=== PATIENT | female | born 1980 | race Hispanic/Latino ===

== ENCOUNTER 2018-01-06 15:27 | Emergency (ER) | payer OTHER ==
[~2018-01-06] VITALS: Ht 170.2 cm; Wt 87.1 kg
--- OUTSIDE RECORDS SUMMARY | 2018-01-06 15:29 | XMS REPORT | Clinical Summary ---
Author Author [facility] Address Unknown Phone Unavailable Care Team Providers Care Yard Caller Name Role Phone Asked, No Pcp PCP Unavailable Allergies No Known Allergies Current Medications Prescription Sig. Disp. Refills Start End Date Status Date docusate sodium (COLACE) Take 1 capsule (100 mg 60 capsule 0 12/25/19 01/24/20 Active 100 MG capsule total) by mouth 2 (two) 18 18 times a day for 30 days. 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 Encounters Date Type Specialty Care Team Description 12/23/2017 [facility] General Internal Medicine Lisa Oswald MD - Encounter 12/24/2017 12/23/2017 Procedure Pass General Surgery 12/23/2017 Surgery General Surgery Lisa Oswald MD ABDOMINOPLASTY WITH 12/13/2017 Anesthesia General Surgery Pavithra Hagen FNP-C Event after 01/05/2017 Family History Medical History Relation Name Comments Diabetes Mother Hypertension Mother Relation Name Status Comments Mother Alive Social History Tobacco Use Types Packs/Day Years Used Date Never Smoker Smokeless Tobacco: Never Used Alcohol Use Drinks/Week oz/Week Comments Yes occasional Sex Assigned at Date Recorded Not on file Last Filed Vital Signs Vital Sign Reading Time Taken Blood Pressure 118/63 12/24/2017 7:23 AM CDT Pulse 74 12/24/2017 7:23 AM CDT Temperature 36.2 C (97.2 F) 12/24/2017 7:23 AM CDT Respiratory Rate 15 12/24/2017 7:23 AM CDT Oxygen Saturation 100% 12/24/2017 7:23 AM CDT Inhaled Oxygen - - Concentration Weight 88.5 kg (195 lb) 12/23/2017 1:32 PM CDT Height 170.2 cm (5' 7") 12/23/2017 1:32 PM CDT Body Mass Index 30.54 12/23/2017 1:32 PM CDT Plan of Treatment Not on file Procedures Procedure Name Priority Date/Time Associated Diagnosis Comments NV AN ELECTIVE Routine 12/23/2017 ENDOTRACHEAL AIRWAY 8:29 AM CDT Procedure Note - Karen Kurtz MD - 12/23/2017 8:29 AM CDT Airway Date/Time: 12/23/2017 8:22 AM Performed by: LISA VINES Authorized by: KAREN KURTZ Location: OR Urgency: Elective Difficult Airway: No Anesthesio logist: KAREN KURTZ Resident/C RNA/AA: LISA VINES Performed by: resident/C RNA/AA Preoxygena roberto with 100% O2: Yes Mask Ventilatio n: Easy mask Final Airway Type: Endotrache al airway Final Endotrache al Airway: ETT Cuffed: Yes Technique Used: Direct laryngosco py Devices/Me thods Used in Placement: Intubatin g stylet Insertion Site: Oral Blade Type: Felipe Laryngosco pe Blade/Vide olaryngosc ope Blade Size: 2 ETT Size (mm): 7.0 Cuff at minimum occlusion pressure: Yes Measured from: Lips ETT to Lips (cm): 21 Placement Verified by: CO2 detection and direct visualizat ion Laryngosco pic view: Grade I - full view of glottis Rapid Sequence Induction (RSI): No Modified RSI: No Number of Attempts at Approach: 1 Atraumati c intubation with soft tissue and dentition unchanged PARTIAL THROMBOPLASTIN STAT 12/23/2017 Results for this TIME (PTT) 7:34 AM CDT procedure are in the results section. PROTHROMBIN TIME WITH INR STAT 12/23/2017 Results for this 7:34 AM CDT procedure are in the results section. POC , URINE Routine 12/23/2017 Results for this 6:51 AM CDT procedure are in the results section. ESTIMATED GFR STAT 12/23/2017 Results for this 6:22 AM CDT procedure are in the results section. HC COMPLETE BLD COUNT STAT 12/23/2017 Results for this W/AUTO DIFF 6:22 AM CDT procedure are in the results section. COMPREHENSIVE METABOLIC STAT 12/23/2017 Results for this PANEL 6:22 AM CDT procedure are in the results section. HCG QUALITATIVE, URINE Routine 12/23/2017 Results for this SCREEN 6:20 AM CDT procedure are in the results section. after 01/05/2017 Results * Partial thromboplastin time, activated (12/23/2017 7:34 AM) PTT 29.8 23.0 - 36.[address] [facility] OF Comment: PATHOLOGY AND PTT therapeutic range for [facility] unfractionated heparin is 61.0-112.0 seconds which corresponds to Anti-Xa 0.3-0.7 U/ml. Specimen Blood Performing Organization Address [facility] Phone Number [facility] [place] [id number]. [place] [phone] PATHOLOGY AND [facility] * Prothrombin time with INR (12/23/2017 7:34 AM) Prothrombin time 13.1 12.0 - 15.[address] [facility] OF PATHOLOGY AND [facility] INR [address] [facility] OF Comment: PATHOLOGY AND The International Normalized [facility] Ratio (INR) is a therapeutic monitoring tool for patients who are stable on oral anticoagulant therapy. An INR of 2.0-3.0 is suggested for deep vein thrombosis/pulmonary embolism. Specimen Blood Performing Organization Address [facility] Phone [place] [address] [employer] [place] [phone] PATHOLOGY AND [employer] * POC , urine (12/23/2017 6:51 AM) test urine, POC Negative QC done Yes Specimen Urine * Estimated GFR (12/23/2017 6:22 AM) Estimated GFR >=90 mL/min/1.[address] [facility] OF Comment: PATHOLOGY AND [employer] GENOMIC MEDICINE rpretation G1 >=90 Normal or high G2 60-89Mildly decreased [id number] Mildly to moderately decreased P5b86-43 Moderately to severely decreased G4 15-29Severely decreased G5 <15Kidney failure The eGFR was calculated using the Chronic Kidney Disease Epidemiology Collaboration (CKD-EPI) equation. Interpretation is based on recommendations of the National Kidney Foundation-Kidney Disease Outcomes Quality Initiative (NKF-KDOQI) published in 2014. Specimen Plasma specimen Performing Organization Address City/[facility] Phone [place] [address] [place] [address] PATHOLOGY AND GENOMIC MEDICINE * CBC with platelet and differential (12/23/2017 6:22 AM) WBC 8.66 4.50 - 11.00 k/uL [facility] PATHOLOGY AND GENOMIC MEDICINE RBC 4.06 (L) 4.20 - 5.50 m/uL [facility] PATHOLOGY AND GENOMIC MEDICINE HGB 12.3 12.0 - 16.0 g/dL [facility] PATHOLOGY AND GENOMIC MEDICINE HCT 38.3 37.0 - 47.0 % [facility] PATHOLOGY AND GENOMIC MEDICINE MCV 94.3 82.0 - 100.0 fL [facility] PATHOLOGY AND GENOMIC MEDICINE MCH 30.3 27.0 - 34.0 pg [facility] PATHOLOGY AND GENOMIC MEDICINE MCHC 32.1 31.0 - 37.0 g/dL [facility] PATHOLOGY AND GENOMIC MEDICINE RDW - SD 44.9 37.0 - 55.0 fL [facility] PATHOLOGY AND GENOMIC MEDICINE MPV 9.4 8.8 - 13.2 fL [facility] PATHOLOGY AND GENOMIC MEDICINE Platelet count 227 150 - 400 k/uL [facility] PATHOLOGY AND GENOMIC MEDICINE Neutrophils 54.4 39.0 - 69.0 % [facility] PATHOLOGY AND GENOMIC MEDICINE Lymphocytes 34.3 25.0 - 45.0 % [facility] PATHOLOGY AND GENOMIC MEDICINE Monocytes 8.0 0.0 - 10.0 % [facility] PATHOLOGY AND GENOMIC MEDICINE Eosinophils 2.3 0.0 - 5.0 % [facility] PATHOLOGY AND GENOMIC MEDICINE Basophils 0.7 0.0 - 1.0 % [facility] PATHOLOGY AND GENOMIC MEDICINE Immature granulocytes 0.3 0.0 - 1.0 % [facility] PATHOLOGY AND GENOMIC MEDICINE Specimen Blood Performing Organization Address City/State/Zipcode Phone Number [place] [address] [address] [address] PATHOLOGY [facility] * Comprehensive metabolic panel (12/23/2017 6:22 AM) Sodium 138 135 - 148 mEq/L [facility] PATHOLOGY AND GENOMIC MEDICINE Potassium 3.6 3.5 - 5.0 mEq/L [facility] PATHOLOGY AND GENOMIC MEDICINE Chloride 101 99 - 109 mEq/L [facility] PATHOLOGY AND GENOMIC MEDICINE CO2 25 24 - 31 mEq/L [facility] PATHOLOGY AND GENOMIC MEDICINE Anion gap 12@ANIO 7 - 15 mEq/L [facility] PATHOLOGY AND GENOMIC MEDICINE BUN 16 8 - 24 mg/dL [facility] PATHOLOGY AND GENOMIC MEDICINE Creatinine 0.66 0.50 - 0.90 mg/dL [facility] PATHOLOGY AND GENOMIC MEDICINE Glucose 101 (H) 65 - 99 mg/dL [facility] PATHOLOGY AND GENOMIC MEDICINE Calcium 9.5 8.6 - 10.6 mg/dL [facility] PATHOLOGY AND GENOMIC MEDICINE Protein 8.2 6.3 - 8.2 g/dL [facility] PATHOLOGY AND GENOMIC MEDICINE Albumin 4.0 3.5 - 5.0 g/dL [facility] PATHOLOGY AND GENOMIC MEDICINE A/G ratio 1.0 0.7 - 3.[address] [facility] OF PATHOLOGY AND GENOMIC MEDICINE Alkaline phosphatase 125 (H) 30 - 115 U/L [facility] PATHOLOGY AND GENOMIC MEDICINE AST 34 15 - 46 U/L [facility] PATHOLOGY AND GENOMIC MEDICINE ALT 92 (H) 10 - 55 U/L [facility] PATHOLOGY AND GENOMIC MEDICINE Total bilirubin 0.4 0.2 - 1.2 mg/dL [facility] PATHOLOGY AND GENOMIC MEDICINE Specimen Plasma specimen Performing Organization Address City/[facility] Phone [place] [address] [address] Garsia. [place] [phone] PATHOLOGY AND GENOMIC MEDICINE * hCG qualitative, urine screen (12/23/2017 6:20 AM) hCG qualitative, urine Negative [facility] OF Comment: PATHOLOGY AND Sensitivity of HCG test: 25 GENOMIC MEDICINE mIU/mL Test performed by Mirtha MARTINES Specimen Urine Performing Organization Address City/State/[facility] [place] [address] Deyanira Garsia. [place] [phone] PATHOLOGY AND GENOMIC MEDICINE after 01/05/2017
[2018-01-06 18:10] VITALS: BP 114/79
== END 2018-01-06 18:11 | disposition home or self-care (01) ==
LOC: ER 15:27
DX: R60.0 Localized edema (principal); M79.662 Pain in left lower leg; I87.1 Compression of vein
CPT/HCPCS: 93970; 99283